=== PATIENT | male | born 2000 | race Caucasian/White ===

== ENCOUNTER 2022-05-26 04:49 | Emergency (ER) | payer MEDICAID ==
[~2022-05-26] VITALS: Ht 175.3 cm; Wt 91.0 kg
[2022-05-26 05:06] VITALS: BP 124/79
== END 2022-05-26 06:49 | disposition left against medical advice (07) ==
LOC: ER 04:49
DX: Z53.21 Procedure and treatment not carried out due to patient leaving prior to being seen by health care provider (principal)

== ENCOUNTER 2024-05-16 18:48 | Emergency (ER) | payer MEDICAID, OTHER ==
[~2024-05-16] VITALS: Ht 175.3 cm; Wt 91.0 kg
[2024-05-16 18:54] VITALS: O2SAT 99
[2024-05-16 19:21] LABS: BASOPHILS % 1.2 % (0.0-2.0); EOSINOPHILS % 8.1 % (0.0-5.0); HEMATOCRIT. 42.8 % (42.0-52.0); HEMOGLOBIN. 14.9 g/dL (14.0-18.0); LYMPHOCYTES % 29.7 % (20.0-50.0); MEAN CORPUSCULAR HEMOGLOBIN 30.9 pg (28.0-32.0); MEAN CORPUSCULAR HGB CONC 34.8 g/dL (31.0-37.0); MEAN CORPUSCULAR VOLUME 88.8 fL (80.0-94.0); MONOCYTES % 7.1 % (2.0-8.0); NEUTROPHILS % 53.9 % (40.0-76.0); PLATELET 243 x1000/uL (130-400); RED BLOOD CELL COUNT 4.82 mill/uL (4.7-6.1); RED CELL DISTRIBUTION WIDTH 12.5 % (11.6-14.6); WHITE BLOOD COUNT 6.4 x1000/uL (4.5-11.0)
[2024-05-16 19:22] LABS: CHLORIDE 105 mEq/L (98-107); POTASSIUM 3.8 mEq/L (3.5-5.1); SODIUM 139 mEq/L (136-145)
[2024-05-16 19:23] LABS: CARBON DIOXIDE 28 mEq/L (21-32)
[2024-05-16 19:24] LABS: CALCIUM 9.9 mg/dL (8.7-10.4)
[2024-05-16 19:28] LABS: GLUCOSE 92 mg/dL (70-105)
[2024-05-16 19:29] LABS: UREA NITROGEN BLOOD 15 mg/dL (9-23)
[2024-05-16 19:30] LABS: ALANINE AMINOTRANSFERASE 21 IU/L (10-49); ALBUMIN 4.9 g/dL (3.2-4.8); ASPARTATE AMINOTRANSFERASE 18 IU/L (<34)
[2024-05-16 19:31] LABS: BILIRUBIN DIRECT 0.2 mg/dL (<=3.0); PROTEIN TOTAL 7.4 g/dL (6.0-8.3)
[2024-05-16] MEDS ORDERED: KETOROLAC 30MG/ML VIAL IM ONE (20:15)
[2024-05-16 20:51] LABS: CLARITY URINE CLEAR (CLEAR); COLOR URINE YELLOW (YELLOW); GLUCOSE URINE NEGATIVE (NEGATIVE); KETONES URINE NEGATIVE (NEGATIVE); LEUKOCYTE ESTERASE URINE NEGATIVE (NEGATIVE); NITRITE URINE NEGATIVE (NEGATIVE); OCCULT BLOOD URINE NEGATIVE (NEGATIVE); PH URINE 5.5 (4.5-8.0); PROTEIN URINE NEGATIVE (NEGATIVE); SPECIFIC GRAVITY URINE 1.025 (1.005-1.030); UROBILINOGEN URINE 0.2 E.U./dL (0.2-1.0)
[2024-05-16] MEDS ORDERED: IBUP-2029 MT (22:06)
[2024-05-16] MEDS: KETOROLAC 30MG/ML VIAL IM NR (22:20)
[2024-05-16 22:50] VITALS: BP 123/66; PULSE 84; RESP 18; TEMP 36.66960; O2SAT 100
== END 2024-05-16 22:50 | disposition home or self-care (01) ==
LOC: ER 18:48
DX: K40.90 Unilateral inguinal hernia, without obstruction or gangrene, not specified as recurrent (principal); N50.811 Right testicular pain; Z98.890 Other specified postprocedural states
CPT/HCPCS: 99285; 74176; 93976; 80076; 80048; 81003; 83690; 85025; 36415; 76870; 96372; J1885